=== PATIENT | male | born 1955 | race Hispanic/Latino ===

== ENCOUNTER 2019-01-01 09:22 | Outpatient (CLI) | payer OTHER ==
--- NOTE | 2019-01-01 13:47 | Nuclear Medicine Report ---
BONE SCAN: History: Prostate cancer. Comparison: None at this facility. After injection of isotope, gamma camera imaging of the bony system was done. There is physiologic uptake in the bony structures, soft tissues and renal system. There is mild linear uptake near the level of the L4-5 disc space which presumably is secondary to degenerative disease. There is also mild focal uptake at the right acromioclavicular joint. No focal areas of abnormal uptake to suggest metastatic disease is identified. IMPRESSION: Negative bone scan. Degenerative uptake at the L4-5 disc space and right acromioclavicular joint.
== END 2019-01-01 09:23 | disposition home or self-care (01) ==
LOC: NM 09:22
PROVIDERS: ATTEND Family Medicine
DX: C61 Malignant neoplasm of prostate (principal); M47.896 Other spondylosis, lumbar region
CPT/HCPCS: 78306; A9503

== ENCOUNTER 2019-01-05 00:22 | Emergency (ER) | payer OTHER ==
[2019-01-05 00:55] LABS: Basophils # (Auto) 0.1 K/mm3 (0.0-0.1); Basophils % (Auto) 0.7 % (0.0-1.8); Eosinophils % (Auto) 0.3 % (0.0-4.3); Hematocrit 43.6 % (35.5-45.6); Hemoglobin 14.9 gm/dl (11.8-15.2); Lymphocytes % (Auto) 7.3 % (13.4-35.0); Mean Corpuscular HGB Conc 34 % (32-34); Mean Corpuscular Volume 89 fl (84-94); Monocytes # (Auto) 0.6 K/mm3 (0.0-0.8); Monocytes % (Auto) 4.2 % (0.0-7.3); Platelet Count 205 K/mm3 (140-440); Red Blood Count 4.89 M/mm3 (3.65-5.03)
[2019-01-05 01:15] LABS: BUN/Creatinine Ratio 29; Blood Urea Nitrogen 29 mg/dL (9-20); Calcium 9.2 mg/dL (8.4-10.2); Hemolysis Index 10
[2019-01-05] MEDS ORDERED: NACL 0.9% 1000 ML 1,000 ML IV ONE ×2 (02:15→03:53)
[2019-01-05 02:21] LABS: Amorphous Crystals,Urine 1+; Bilirubin,Urine NEG (Negative); Blood,Urine NEG (Negative); Color,Urine Yellow (Yellow); Mucus,Urine FEW /HPF; Urobilinogen,Urine < 2.0 mg/dL (<2.0)
[2019-01-05] MEDS ORDERED: CEPHULAC PO ONE (02:29)
--- NOTE | 2019-01-05 02:29 | Emergency Department Report ---
HPI - General Chief Complaint: Urogenital-Male Time Seen by Provider: 01/05/19 02:07 - [facility] HPI: Room 8 The patient is a 63-year-old male presenting with chief complaint of constipation and urinary retention. The patient states she's been unable to urinate since 14:00 today. The patient has a history of prostate CA and states there is been no intervention yet. Patient also states he's had difficulty with bowel movements for one year but normally has one bowel movement daily. The patient states his last bowel movement occurred yesterday he has not had his BM today. Patient states he feels as though the stool is hard. Patient admits to nausea but denies vomiting or fever Location: Genitourinary system, gastrointestinal system Duration: [See above] Quality: [See above] Severity: Moderate Modifying factors: [see above] Context: [see above] Mode of transportation: [not driving] ED Past Medical Hx - Past Medical History Hx Hypertension: Yes Hx Diabetes: Yes Hx of Cancer: Yes (Prostate) Additional medical history: Hypothyroidism - Surgical History Hx Cholecystectomy: Yes Additional Surgical History: Left knee. Laser Eye Surgery - Family History Family history: no significant - Social History Smoking Status: Never Smoker Substance Use Type: None (denies illicit drug use), Alcohol (occasional) ED Review of Systems ROS: Stated complaint: DIFFICULTY URINATING/PROSTATE CANCER Other details as noted in HPI Constitutional: denies: fever Eyes: denies: eye pain ENT: denies: throat pain Respiratory: no symptoms reported Cardiovascular: denies: chest pain Endocrine: no symptoms reported Gastrointestinal: abdominal pain, nausea. denies: vomiting Genitourinary: other (urinary retention) Neurological: denies: headache Physical Exam - Physical Exam Vital Signs: Vital Signs 01/05/19 00:31 Temperature 98.3 F Pulse Rate 109 H Respiratory 18 Rate Blood Pressure 198/80 O2 Sat by Pulse 98 Oximetry Physical Exam: GENERAL: The patient is well-developed well-nourished male lying on stretcher not appearing to be in acute distress. [] HEENT: Normocephalic. Atraumatic. Extraocular motions are intact. Patient has moist mucous membranes. NECK: Supple. Trachea midline CHEST/LUNGS: Clear to auscultation. There is no respiratory distress noted. HEART/CARDIOVASCULAR: Regular. There is tachycardia. There is no gallop rub or murmur. ABDOMEN: Abdomen is soft, nontender. Patient has normal bowel sounds. There is no abdominal distention. SKIN: There is no rash. There is no edema. There is no diaphoresis. NEURO: The patient is awake, alert, and oriented. The patient is cooperative. The patient has normal speech MUSCULOSKELETAL: There is no evidence of acute injury. RECTAL: Fecal impaction. Patient manually disimpacted with a moderate amount of stool removed ED Course Vital Signs 01/05/19 00:31 Temperature 98.3 F Pulse Rate 109 H Respiratory 18 Rate Blood Pressure 198/80 O2 Sat by Pulse 98 Oximetry - Rectal Disimpaction Consent Obtained: verbal consent Time Out Performed: No Indication: fecal impaction Procedural Sedation: No Sedation/Analgesia: none Technique: manual disimpaction with Result: significant stool output Complications: none Patient Tolerated Procedure: no complications ED Medical Decision Making - Lab Data Result diagrams: 01/05/19 00:47 01/05/19 00:47 Laboratory Tests 01/05/19 01/05/19 01/05/19 00:47 00:47 Unknown WBC 13.5 H RBC 4.89 Hgb 14.9 Hct 43.6 MCV 89 MCH 30 MCHC 34 RDW 13.0 L Plt Count 205 Lymph % (Auto) 7.3 L Brant[place] % (Auto) 4.2 Eos % (Auto) 0.3 Baso % (Auto) 0.7 Lymph # 1.0 L Br[place]ley # 0.6 Eos # 0.0 Baso # 0.1 Seg Neutrophils % 87.5 H Seg Neutrophils # 11.8 H Sodium 133 L Potassium 4.2 Chloride 94.2 L Carbon Dioxide 26 Anion Gap 17 BUN 29 H Creatinine 1.0 Estimated GFR > 60 BUN/Creatinine Ratio 29 Glucose 325 H Calcium 9.2 Urine Color Yellow Urine Turbidity Clear Urine pH 5.0 Ur Specific [place] 1.025 Urine Protein 100 mg/dl Urine Glucose (UA) >=500 Urine Ketones Tr Urine Blood Neg Urine Nitrite Neg Urine Bilirubin Neg Urine Urobilinogen < 2.0 Ur Leukocyte Esterase Neg Urine WBC (Auto) 1.0 Urine RBC (Auto) 8.0 U Epithel Cells (Auto) < 1.0 Amorphous Crystals 1+ Urine Mucus Few - Radiology Data Radiology results: report reviewed (CT abdomen and pelvis), image reviewed (CT abdomen and pelvis) [facility] [address] [place] [address] Cat Scan Report Signed Patient: IMELDA CHACON MR#: [id number] : 1955 Acct:[id number] Age/Sex: 63 / M ADM Date: 01/05/19 Loc: ED Attending Dr: Ordering Physician: GARCIA DOBBS MD Date of Service: 01/05/19 Procedure(s): CT abdomen pelvis w con Accession Number(s): [id number] cc: GARCIA DOBBS MD FINAL REPORT PROCEDURE: CT ABDOMEN PELVIS W CON TECHNIQUE: Computerized axial tomography of the abdomen and pelvis was performed after the IV injection of iodinated nonionic contrast. HISTORY: diffuse abdominal discomfort, obstipation COMPARISON: No prior studies are available for comparison. FINDINGS: Visualized lower thorax: No significant abnormality. Liver: Normal size and attenuation. Spleen: Normal size and attenuation. Gallbladder and biliary system: There has been a cholecystectomy. There is mild biliary ductal dilatation per. Pancreas: Normal. Adrenals: Normal. Kidneys: There are tiny stones in the left kidney. There is no hydronephrosis.. GI tract: There is a large amount of stool in the sigmoid colon and rectum suggesting constipation. There is no fecal impaction or obstruction. There is fluid in the right colon and cecum. There is no specific evidence of colitis or enteritis. The appendix is not seen.. Lymph nodes and mesentery: Normal. Vasculature: There is calcified plaque in the abdominal aorta. There is no aneurysm.. Bladder: Normal. Reproductive organs: There is a Acosta catheter in the urinary bladder.. Peritoneum: There is no ascites, free air, abscess or adenopathy.. Musculoskeletal structures: There is grade 1 anterior spondylolisthesis at L5-S1 with bilateral spondylolysis.. Other: None. IMPRESSION: There has been a cholecystectomy. There is mild biliary ductal dilatation per. There are tiny stones in the left kidney. There is no hydronephrosis.. There is a large amount of stool in the sigmoid colon and rectum suggesting constipation. There is no fecal impaction or obstruction. There is fluid in the right colon and cecum. There is no specific evidence of colitis or enteritis. The appendix is not seen.. There is a Acosta catheter in the urinary bladder.. There is no ascites, free air, abscess or adenopathy.. Transcribed By: CO Dictated By: OSCAR ALFONSO MD Electronically Authenticated By: OSCAR ALFONSO MD Signed Date/Time: 01/05/19517 DD/ 5 TD/TT: 01/05/19515 - Medical Decision Making I discussed with the patient and the patient's spouse my concern for his persistently elevated heart rate as well as his elevated WBC in the setting of untreated prostate CA. I express my recommendation that he be admitted to the hospital. Patient verbalized understanding of increased morbidity and/or mortality should he leave the hospital AGAINST MEDICAL ADVICE. Patient states he would like to leave the hospital AGAINST MEDICAL ADVICE - Differential Diagnosis urinary retention, prostate CA, fecal impaction Critical care attestation.: If time is entered above; I have spent that time in minutes in the direct care of this critically ill patient, excluding procedure time. ED Disposition Clinical Impression: Urinary retention, Fecal impaction Disposition: DC-07 LEFT AGAINST MED ADVICE Is pt being admited?: No Does the pt Need Aspirin: No Condition: Undetermined Instructions: Urinary Retention in Men (ED) Additional Instructions: Return to the emergency department immediately should you develop worsening symptoms, fever, inability to tolerate food or liquid or any other concerns. Referrals: JANET SRIVASTAVA MD [Staff Physician] - [facility] (Dr Srivastava is a urologist. Please follow up with him for further evaluation) Time of Disposition: 05:59 (patient leaving AMA)
--- NOTE | 2019-01-05 05:18 | Cat Scan Report ---
FINAL REPORT PROCEDURE: CT ABDOMEN PELVIS W CON TECHNIQUE: Computerized axial tomography of the abdomen and pelvis was performed after the IV inject ion of iodinated nonionic contrast. HISTORY: diffuse abdominal discomfort, obstipation COMPARISON: No prior studies are available for comparison. FINDINGS: Visualized lower thorax: No significant abnormality. Liver: Normal size and attenuation. Spleen: Normal size and attenuation. Gallbladder and biliary system: There has been a cholecystectomy. There is mild biliary ductal dilata tion per. Pancreas: Normal. Adrenals: Normal. Kidneys: There are tiny stones in the left kidney. There is no hydronephrosis.. GI tract: There is a large amount of stool in the sigmoid colon and rectum suggesting constipation. T here is no fecal impaction or obstruction. There is fluid in the right colon and cecum. There is no s pecific evidence of colitis or enteritis. The appendix is not seen.. Lymph nodes and mesentery: Normal. Vasculature: There is calcified plaque in the abdominal aorta. There is no aneurysm.. Bladder: Normal. Reproductive organs: There is a Acosta catheter in the urinary bladder.. Peritoneum: There is no ascites, free air, abscess or adenopathy.. Musculoskeletal structures: There is grade 1 anterior spondylolisthesis at L5-S1 with bilateral spond ylolysis.. Other: None. IMPRESSION: There has been a cholecystectomy. There is mild biliary ductal dilatation per. There are tiny stones in the left kidney. There is no hydronephrosis.. There is a large amount of stool in the sigmoid colon and rectum suggesting constipation. There is no fecal impaction or obstruction. There is fluid in the right colon and cecum. There is no specific ev idence of colitis or enteritis. The appendix is not seen.. There is a Acosta catheter in the urinary bladder.. There is no ascites, free air, abscess or adenopathy..
[2019-01-05 06:20] VITALS: BP 175/79
== END 2019-01-05 06:31 | disposition left against medical advice (07) ==
LOC: ED 00:22
DX: K56.41 Fecal impaction (principal); R33.9 Retention of urine, unspecified; I10 Essential (primary) hypertension; E11.9 Type 2 diabetes mellitus without complications; Z85.46 Personal history of malignant neoplasm of prostate; Z90.49 Acquired absence of other specified parts of digestive tract
CPT/HCPCS: 36415; 74177; 80048; 81001; 85025; 99285; J7030; Q9967